=== PATIENT | female | born 1945 | race African-American/Black ===

== ENCOUNTER 2016-06-02 11:04 | Day surgery (SDC) | payer OTHER, MEDICARE ==
[~2016-06-02 11:04] MED LIST: CIPROFLOXACIN 0.3% OPHTH SOLUTION 2.5ML BOTTLE. OS ONE; EPINEPHRINE IO ONE; FENTANYL PF 100 MCG/2 ML VIAL. IV PRN; FEXO180T81 PO; HYDROMORPHONE 2 MG/ML VIAL. IV PRN; IV RINGERS,LACTATED 1000ML 1,000 ML IV SCH; LIDOCAINE 1% 1 ML SYRINGE. ID PRN; LIDOCAINE 2% JELLY 6ML IN APPLICATOR. MM PRN; MORPHINE SULFATE 2 MG/ML DISP.SYRIN. IV PRN; ONDANSETRON PF 4 MG/2 ML VIAL. IV PRN; PROCHLORPERAZINE 10 MG/2 ML VIAL. IV PRN; PROPARACAINE 0.5% OPHTH SOLUTION 15ML BOTTLE. OS ONE; [UNRECOGNIZED DRUG - OTHER] IO ONE
[2016-06-02] MEDS: PHENYLEPHRINE 10% OPHTH SOLUTION 5ML BOTTLE. OS SCH ×3 (11:38→11:50)
[2016-06-02] MEDS: CYCLOPENTOLATE 1% OPTH SOLUTION 2ML BOTTLE. OS SCH ×3 (11:38→11:50)
[2016-06-02] MEDS ORDERED: CHONDROIT-SOD-HYALURONATE KIT. ONE (11:41)
[2016-06-02] MEDS ORDERED: LIDOCAINE 1% PF 2 ML VIAL. ONE (11:41)
[2016-06-02] MEDS ORDERED: BALANCED SALT IRRIG OPHTH SOLN 15 ML BOTTLE. ONE (11:41)
[2016-06-02] MEDS ORDERED: NEO/POLYMYX/DEXAMETH OPHTH OINTMENT 3.5GM TUBE. ONE (11:41)
[2016-06-02] MEDS ORDERED: TRYPAN BLUE 0.06% INTRAOCULAR 0.5 ML SYRINGE. IO ONE (12:53)
[2016-06-02 13:43] VITALS: BP 161/68
[2016-06-02] MEDS ORDERED: DIFL5DRO2 OP (14:10)
[2016-06-02] MEDS ORDERED: TOBR5DRO6 OP (14:22)
--- NOTE | 2016-06-02 16:31 | OP ---
DATE OF SURGERY: 06/02/2016 PREOPERATIVE DIAGNOSIS: Significant cortical and posterior subcapsular cataract, left eye. POSTOPERATIVE DIAGNOSIS: Significant cortical and posterior subcapsular cataract, left eye. PROCEDURE: Phacoemulsification with posterior chamber lens implant with use of vision blue, left eye. ANESTHESIA: Topical with MAC. DESCRIPTION OF PROCEDURE: The patient's dilating drops and topical lidocaine anesthesia was applied in the outpatient area. The [place] balloon cup was placed over the eye and inflated to 30 mmHg and allowed to act for about 10-15 minutes. The patient was then brought to the operating room, positioned on the table, and prepositioned under the microscope. The eye was prepped and draped in the usual sterile manner for an intraocular procedure. The patient was and the lid speculum placed between the eyelids. The operating microscope was brought into position. The patient was first observed. There was good pupillary dilation. There was significant cortical cataract, which was going to interfere with capsulorrhexis formation. I decided to use vision blue. A paracentesis incision was used to make a small incision inferior temporally and 1% lidocaine injected into the anterior chamber. This was followed by an injection of air and Viscoat plug. Vision blue was then infiltrated over the anterior capsular surface and allowed to stain the capsule. The air was then displaced with Viscoat and the primary 2.4 mm incision made temporally. I was then able to perform a capsulorrhexis with a bent needle and forceps without difficulty. The lens nucleus was hydrodissected and the nucleus phacoemulsified without difficulty. The cortical material was then aspirated using the I/a handle. A +20.0 diopter posterior chamber lens was then placed into the bag with the use of Provisc. The Provisc was then aspirated with the I/a handle and the eye was then pressurized. The wound was checked for leaks and there were none. The eye looked very good in the case. The speculum and drape were removed and Maxitrol ointment instilled in the conjunctiva sac and the eye was shielded. She was taken to recovery room in satisfactory condition. I will check her Sunday in my office. I will be in touch with her by phone tomorrow. There were no complications. K AUBREE VALLEJO, MD DR: CATY/raya JOB#: [id number] / [id number]
== END 2016-06-02 14:46 | disposition home or self-care (01) ==
LOC: SURG 11:04
PROVIDERS: ATTEND Ophthalmology
DX: H26.8 Other specified cataract (principal); E78.00 Pure hypercholesterolemia, unspecified; K63.5 Polyp of colon; M19.90 Unspecified osteoarthritis, unspecified site; D64.9 Anemia, unspecified; Z87.891 Personal history of nicotine dependence; Z90.710 Acquired absence of both cervix and uterus
CPT/HCPCS: 66982; J0171; C1780

== ENCOUNTER → 2016-06-16 | Day surgery (SDC) | payer OTHER, MEDICARE ==
[~2016-06-16] VITALS: Ht 154.9 cm; Wt 66.7 kg
[~2016-06-16] MED LIST changes: +BALANCED SALT IRRIG OPHTH SOLN 15 ML BOTTLE. ONE; +CHONDROIT-SOD-HYALURONATE KIT. ONE; +CIPROFLOXACIN 0.3% OPHTH SOLUTION 2.5ML BOTTLE. OD ONE; -CIPROFLOXACIN 0.3% OPHTH SOLUTION 2.5ML BOTTLE. OS ONE; +DIFL5DRO2 OP; +EPINEPHRINE 0.2 MG in BALANCED SALT IRR SOLN (BAG) 500 ML IO ONE; -EPINEPHRINE IO ONE; +LIDOCAINE 1% PF 2 ML VIAL. ONE; +LIDOCAINE 2% 100 MG/5 ML DISP.SYRIN. ONE; +MIDAZOLAM HCL 2 MG/2 ML VIAL. ONE; +NEO/POLYMYX/DEXAMETH OPHTH OINTMENT 3.5GM TUBE. ONE; +PROPARACAINE 0.5% OPHTH SOLUTION 15ML BOTTLE. OD ONE; -PROPARACAINE 0.5% OPHTH SOLUTION 15ML BOTTLE. OS ONE; +PROPOFOL 0 ML IV ONE; +TOBR5DRO6 OP; -[UNRECOGNIZED DRUG - OTHER] IO ONE
[2016-06-16] MEDS: PHENYLEPHRINE 10% OPHTH SOLUTION 5ML BOTTLE. OD SCH ×3 (11:57→12:07)
[2016-06-16] MEDS: CYCLOPENTOLATE 1% OPTH SOLUTION 2ML BOTTLE. OD SCH ×3 (11:59→12:09)
[2016-06-16 13:55] VITALS: BP 144/55
--- NOTE | 2016-06-16 18:27 | OP ---
DATE OF SURGERY: 06/16/2016 PREOPERATIVE DIAGNOSIS: Senile cataract, left eye. POSTOPERATIVE DIAGNOSIS: Senile cataract, left eye PROCEDURE: Phacoemulsification with posterior chamber lens implant, left eye. ANESTHESIA: Topical with MAC. DESCRIPTION OF PROCEDURE: The patient's topical dilating drops and topical anesthesia were applied in the outpatient holding area and the Honan balloon cuff placed over the eye and inflated to 30 mmHg and allowed to act for about 15 minutes. The patient was then brought to the operating room, positioned on the table. The right eye was prepped and draped in usual sterile manner for an intraocular procedure. ____ K AUBREE VALLEJO MD DR: CATY/raya JOB#: [id number] / [id number]
--- NOTE | 2016-06-16 18:38 | OP ---
DATE OF SURGERY: 06/16/2016 PREOPERATIVE DIAGNOSIS: Senile cataract, right eye. POSTOPERATIVE DIAGNOSIS: Senile cataract, right eye. PROCEDURE: Phacoemulsification with posterior chamber lens implant, right eye. ANESTHESIA: Topical with MAC. DESCRIPTION OF PROCEDURE: The patient's topical dilating and anesthesia drops were instilled in the outpatient holding area. The Honan balloon cuff was placed over the eye and inflated to 30 mmHg and allowed to act for about 15 minutes. The patient was then brought to the operating room, positioned on the table and the right eye was prepped and draped in the usual sterile manner for an intraocular procedure. A lid speculum was placed between the eyelids and the operating microscope brought into position. The eye was first observed and there was good pupillary dilatation. A paracentesis incision was made superior temporally followed by an injection into the anterior chamber of 1% lidocaine. This was followed by an injection of Viscoat and then the primary 2.4 mm incision was made temporally. A Capsulorrhexis was performed without difficulty and then the lens nucleus hydrodissected. The nucleus was then phacoemulsified without difficulty. The cortical shell was cleaned up with the I/A instrument. Provisc was then used to form the anterior chamber and insufflate the bag. A +20.5 diopter posterior chamber lens was placed into the bag without difficulty. The viscoelastic was aspirated with the I/A handpiece. The wound was then pressurized with balanced salt solution and the wound checked for leaks and there were none. The speculum and drape were removed and Maxitrol ointment instilled in the conjunctival sac. The eye was shielded and the patient was taken to the recovery room in satisfactory condition. There were no complications. I will see the patient in 3 days in my office. I will touch bases with her by phone tomorrow. K AUBREE VALLEJO MD DR: CATY/raya JOB#: [id number] / [id number]
== END ==
LOC: SURG 10:54
PROVIDERS: ATTEND Ophthalmology
DX: H25.11 Age-related nuclear cataract, right eye (principal); E78.00 Pure hypercholesterolemia, unspecified; M19.90 Unspecified osteoarthritis, unspecified site; D64.9 Anemia, unspecified
CPT/HCPCS: 66984; C1780; J0171; J2250; J2704

== ENCOUNTER → 2016-08-03 | Outpatient (CLI) | payer OTHER, MEDICARE ==
[2016-06-16 13:55] VITALS: BP 144/55
[~2016-08-03] MED LIST changes: -BALANCED SALT IRRIG OPHTH SOLN 15 ML BOTTLE. ONE; -CHONDROIT-SOD-HYALURONATE KIT. ONE; -CIPROFLOXACIN 0.3% OPHTH SOLUTION 2.5ML BOTTLE. OD ONE; -EPINEPHRINE 0.2 MG in BALANCED SALT IRR SOLN (BAG) 500 ML IO ONE; -FENTANYL PF 100 MCG/2 ML VIAL. IV PRN; -HYDROMORPHONE 2 MG/ML VIAL. IV PRN; -IV RINGERS,LACTATED 1000ML 1,000 ML IV SCH; -LIDOCAINE 1% 1 ML SYRINGE. ID PRN; -LIDOCAINE 1% PF 2 ML VIAL. ONE; -LIDOCAINE 2% 100 MG/5 ML DISP.SYRIN. ONE; -LIDOCAINE 2% JELLY 6ML IN APPLICATOR. MM PRN; -MIDAZOLAM HCL 2 MG/2 ML VIAL. ONE; -MORPHINE SULFATE 2 MG/ML DISP.SYRIN. IV PRN; -NEO/POLYMYX/DEXAMETH OPHTH OINTMENT 3.5GM TUBE. ONE; -ONDANSETRON PF 4 MG/2 ML VIAL. IV PRN; -PROCHLORPERAZINE 10 MG/2 ML VIAL. IV PRN; -PROPARACAINE 0.5% OPHTH SOLUTION 15ML BOTTLE. OD ONE; -PROPOFOL 0 ML IV ONE
--- NOTE | 2016-08-03 08:39 | RAD ---
DATE: 08/03/2016 EXAM: DIGITAL SCREEN BILAT W/CAD HISTORY: Routine screening COMPARISON: 05/10/2015 This study was interpreted with the benefit of Computerized Aided Detection (CAD). FINDINGS: The breasts are heterogeneously dense. No new or enlarging breast densities are seen. Minimal benign type calcifications present. No suspicious microcalcifications have developed. IMPRESSION: Stable mammograms without evidence of malignancy. BI-RADS CATEGORY: 2 BENIGN FINDING(S) RECOMMENDED FOLLOW-UP: 12M 12 MONTH FOLLOW-UP PQRS compliance statement: Patient information was entered into a reminder system with a target due date for the next mammogram. Mammography is a sensitive method for finding small breast cancers, but it does not detect them all and is not a substitute for careful clinical examination. A negative mammogram does not negate a clinically suspicious finding and should not result in delay in biopsying a clinically suspicious abnormality. "Our facility is accredited by the [employer] Mammography Program."
== END | disposition home or self-care (01) ==
LOC: MAMMO 07:45
PROVIDERS: ATTEND Family Medicine
DX: Z12.31 Encounter for screening mammogram for malignant neoplasm of breast (principal)
CPT/HCPCS: G0202; 77067

== ENCOUNTER → 2017-04-12 | Outpatient (CLI) | payer OTHER, MEDICARE ==
[2016-06-16 13:55] VITALS: BP 144/55
--- NOTE | 2017-04-12 08:26 | KCIC ---
Bone Densitometry History: Postmenopausal female. Hysterectomy. Findings: Bone Densitometry was performed with dual photon absorption of the lumbar spine and proximal femurs. Lumbar Spine: Bone density is 1.031 g/cm2 for L1-L4. T-score is -0.1. Z-score is 1.3. Left total femur: Bone density is 0.966 g/cm2. T-score is 0.2. Z-score is 0.7. IMPRESSION: Bone mineral densities of the lumbar spine and left total femur are normal. World Health Organization definition of osteoporosis and osteopenia for women: normal equals T score at or above -1.0 standard deviations; osteopenia equals T score between -1.0 and -2.5 standard deviations; osteoporosis equals T score at or below -2.5 standard deviations. Electronically signed by: Rosalio Patel MD (04/12/2017 8:22 AM) [id number]
== END | disposition home or self-care (01) ==
LOC: KCIC DEXA 07:45
PROVIDERS: ATTEND Nurse Practitioner
DX: M81.0 Age-related osteoporosis without current pathological fracture (principal); Z78.0 Asymptomatic menopausal state
CPT/HCPCS: 77080

== ENCOUNTER → 2017-10-06 | Outpatient (CLI) | payer OTHER, MEDICARE | END | disposition home or self-care (01) | LOC: MAMMO 09:06 | DX: Z12.31 Encounter for screening mammogram for malignant neoplasm of breast (principal); E78.00 Pure hypercholesterolemia, unspecified | CPT/HCPCS: 77063; 77067 ==

== ENCOUNTER → 2017-10-11 | Outpatient (CLI) | payer OTHER, MEDICARE ==
[2017-10-11 07:53] LABS: ADD MAN DIFF? NO
[2017-10-11 07:58] LABS: BASO # 0.1 x10^3/uL (0.0-0.2); BASO % 1 % (0-3); EOS # 0.2 x10^3/uL (0.0-0.7); EOS % 3 % (0-3); HEMATOCRIT 42.9 % (36.0-47.0); HEMOGLOBIN 14.1 g/dL (12.0-15.5); LYMPH # 1.7 x10^3/uL (1.0-4.8); LYMPH % 22 % (24-48); MEAN CORPUSCULAR HEMOGLOBIN 29 pg (25-35); MEAN CORPUSCULAR HGB CONC 33 g/dL (31-37); MEAN CORPUSCULAR VOLUME 88 fL (79-100); MONO # 0.4 x10^3/uL (0.0-1.1); MONO % 5 % (0-9); NEUT # 5.4 x10^3uL (1.8-7.7); NEUT % 69 % (31-73); PLATELET COUNT 243 x10^3/uL (140-400); RED BLOOD COUNT 4.86 x10^6/uL (3.50-5.40); RED CELL DISTRIBUTION WIDTH 13.7 % (11.5-14.5); WHITE BLOOD COUNT 7.8 x10^3/uL (4.0-11.0)
[2017-10-11 08:17] LABS: ALBUMIN 3.8 g/dL (3.4-5.0); ALBUMIN/GLOBULIN RATIO 0.9 (1.0-1.7); ALK PHOS 90 U/L (46-116); ALT (SGPT) 25 U/L (14-59); ANION GAP 8 (6-14); AST (SGOT) 12 U/L (15-37); BLOOD UREA NITROGEN 13 mg/dL (7-20); BUN/CREATININE RATIO 14 (6-20); CARBON DIOXIDE 30 mmol/L (21-32); CHLORIDE 104 mmol/L (98-107); CHOLESTEROL 210 mg/dL (0-200); CREATININE 0.9 mg/dL (0.6-1.0); GFR 74.7; GLUCOSE 105 mg/dL (70-99); HDLC 69 mg/dL (40-60); LDLC 126 mg/dL (0-100); NON-HDL CHOLESTEROL 141 mg/dL (0-129); POTASSIUM 3.8 mmol/L (3.5-5.1); SODIUM 142 mmol/L (136-145); TOTAL BILIRUBIN 0.5 mg/dL (0.2-1.0); TRIGLYCERIDES 73 mg/dL (0-150); VLDLC 15 mg/dL (0-40)
[2017-10-11 08:25] LABS: THYROID STIM HORMONE (TSH) 1.467 uIU/mL (0.358-3.74)
[2017-10-12 04:17] LABS: HEMOGLOBIN A1C 5.1 % (4.8-5.6)
== END | disposition home or self-care (01) ==
LOC: LAB 07:18
DX: E78.2 Mixed hyperlipidemia (principal); I10 Essential (primary) hypertension; E55.9 Vitamin D deficiency, unspecified
CPT/HCPCS: 36415; 80053; 80061; 82306; 83036; 84443; 85025

== ENCOUNTER 2018-02-02 07:22 | Emergency (ER) | payer OTHER, MEDICARE ==
[~2018-02-02] VITALS: Ht 157.5 cm; Wt 68.5 kg
[2018-02-02 07:30] VITALS: BP 175/82
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
== END 2018-02-02 08:58 | disposition home or self-care (01) ==
LOC: ER 07:22
DX: S20.212A Contusion of left front wall of thorax, initial encounter (principal); I10 Essential (primary) hypertension; Z90.710 Acquired absence of both cervix and uterus; Z88.1 Allergy status to other antibiotic agents; V49.9XXA Car occupant (driver) (passenger) injured in unspecified traffic accident, initial encounter; Y93.89 Activity, other specified; Y92.410 Unspecified street and highway as the place of occurrence of the external cause; Y99.8 Other external cause status
CPT/HCPCS: 71046; 99284

== ENCOUNTER → 2018-08-21 | Outpatient (CLI) | payer OTHER, MEDICARE ==
[2018-08-21 09:51] LABS: BASO # 0.1 x10^3/uL (0.0-0.2); BASO % 1 % (0-3); EOS # 0.2 x10^3/uL (0.0-0.7); EOS % 3 % (0-3); HEMATOCRIT 43.1 % (36.0-47.0); LYMPH # 1.7 x10^3/uL (1.0-4.8); LYMPH % 22 % (24-48); MEAN CORPUSCULAR HEMOGLOBIN 29 pg (25-35); MEAN CORPUSCULAR HGB CONC 32 g/dL (31-37); MEAN CORPUSCULAR VOLUME 88 fL (79-100); MONO # 0.4 x10^3/uL (0.0-1.1); MONO % 5 % (0-9); NEUT # 5.6 x10^3uL (1.8-7.7); NEUT % 70 % (31-73); PLATELET COUNT 244 x10^3/uL (140-400); RED BLOOD COUNT 4.89 x10^6/uL (3.50-5.40); RED CELL DISTRIBUTION WIDTH 13.8 % (11.5-14.5)
[2018-08-21 10:09] LABS: ALBUMIN 3.4 g/dL (3.4-5.0); ALBUMIN/GLOBULIN RATIO 0.8 (1.0-1.7); CALCIUM 8.9 mg/dL (8.5-10.1); CREATININE 0.8 mg/dL (0.6-1.0); GFR 85.3; POTASSIUM 3.6 mmol/L (3.5-5.1); TOTAL BILIRUBIN 0.4 mg/dL (0.2-1.0); TOTAL PROTEIN 7.7 g/dL (6.4-8.2)
[2018-08-21 10:13] LABS: CHOLESTEROL/HDL RATIO 3.2
== END | disposition home or self-care (01) ==
LOC: LAB 08:25
PROVIDERS: ATTEND Nurse Practitioner
DX: E78.2 Mixed hyperlipidemia (principal); E55.9 Vitamin D deficiency, unspecified
CPT/HCPCS: 36415; 80053; 80061; 82306; 85025

== ENCOUNTER → 2018-10-16 | Outpatient (CLI) | payer OTHER, MEDICARE ==
--- NOTE | 2018-10-16 10:19 | RAD ---
DATE: 10/16/2018. EXAM: MAMMO MICHAEL SCREENING BILATERAL. HISTORY: Routine mammographic screening. COMPARISON: 10/06/2017. This study was interpreted with the benefit of Computerized Aided Detection (CAD). FINDINGS: Breast Density: HETERO The breast parenchyma is heterogenously dense, which could reduce sensitivity of mammography. Breast parenchyma level C.. There appears to be left nipple retraction on the MLO projection, but not on the CC view. This is new since the prior study. No subareolar abnormality is identified on the left. There are no suspicious masses, microcalcifications or architectural distortion. Small nodules bilaterally are stable. Previously marked skin lesions are again noted on the left. The parenchymal pattern is stable. BI-RADS CATEGORY: 0 INCOMPLETE: NEEDS ADDITIONAL IMAGING EVALUATION AND/OR PRIOR MAMMOGRAMS FOR COMPARISON.. RECOMMENDED FOLLOW-UP: ADD ADDITIONAL IMAGING. 1. Clinical assessment and ultrasound of the left subareolar breast to assess for cause of developing left nipple retraction. PQRS compliance statement: Patient information was entered into a reminder system with a target due date (now) for the next mammogram. Mammography is a sensitive method for finding small breast cancers, but it does not detect them all and is not a substitute for careful clinical examination. A negative mammogram does not negate a clinically suspicious finding and should not result in delay in biopsying a clinically suspicious abnormality. "Our facility is accredited by the [employer] Mammography Program."
== END | disposition home or self-care (01) ==
LOC: MAMMO 07:38
PROVIDERS: ATTEND Family Medicine
DX: Z12.31 Encounter for screening mammogram for malignant neoplasm of breast (principal); N63.20 Unspecified lump in the left breast, unspecified quadrant; N63.10 Unspecified lump in the right breast, unspecified quadrant
CPT/HCPCS: 77063; 77067

== ENCOUNTER → 2018-10-23 | Outpatient (CLI) | payer OTHER, MEDICARE ==
--- NOTE | 2018-10-23 08:37 | RAD ---
Left breast ultrasound, 10/23/2018: HISTORY: Nipple retraction The patient reports that her left nipple has been slightly retracted on a chronic basis and has not changed. A targeted ultrasound exam of the left retroareolar region demonstrates heterogeneous fibroglandular shadows. No solid mass or unusual fluid collection is seen. IMPRESSION: The targeted left breast ultrasound reveals no abnormality. Routine follow-up bilateral mammography in one year is suggested. BI-RADS 2-benign findings
== END | disposition home or self-care (01) ==
LOC: US 07:57
PROVIDERS: ATTEND Family Medicine
DX: N64.53 Retraction of nipple (principal)
CPT/HCPCS: 76641

== ENCOUNTER → 2019-09-05 | Outpatient (CLI) | payer OTHER ==
[2019-09-05 07:38] LABS: ALBUMIN 3.4 g/dL (3.4-5.0); ALBUMIN/GLOBULIN RATIO 0.9 (1.0-1.7); CHOLESTEROL/HDL RATIO 3.6; CREATININE 0.9 mg/dL (0.6-1.0); GFR 74.3; POTASSIUM 4.3 mmol/L (3.5-5.1); TOTAL BILIRUBIN 0.3 mg/dL (0.2-1.0); TOTAL PROTEIN 7.2 g/dL (6.4-8.2)
== END | disposition home or self-care (01) ==
LOC: LAB 07:01
PROVIDERS: ATTEND Nurse Practitioner
DX: E55.9 Vitamin D deficiency, unspecified (principal); E78.2 Mixed hyperlipidemia
CPT/HCPCS: 36415; 80053; 80061; 82306; 84443

== ENCOUNTER → 2020-03-27 | Outpatient (CLI) | payer OTHER ==
--- NOTE | 2020-03-29 11:11 | RAD ---
DATE: 03/27/2020 9:30 AM EXAM: MAMMO MICHAEL SCREENING BILATERAL HISTORY: Screening COMPARISON: 10/16/2018, 10/06/2017, 08/03/2016 Bilateral CC and MLO views of the breasts were performed. Bilateral breast tomosynthesis was performed in CC and MLO projections. This study was interpreted with the benefit of Computerized Aided Detection (CAD). FINDINGS: Breast Density: HETERO The breast parenchyma Is heterogeneously dense, which could reduce sensitivity of mammography. Breast parenchyma level C Left mammogram is negative. Right mammogram shows an asymmetry in the posterior right breast along the posterior nipple line on the 2-D MLO view that may have a correlate on image 21 of the MLO tomographic series. This needs additional imaging with a right X CCL view, spot compression right MLO view and full-field ML view. IMPRESSION: Incomplete. Asymmetry right breast needs additional imaging. BI-RADS CATEGORY: 0 INCOMPLETE: NEEDS ADDITIONAL IMAGING EVALUATION AND/OR PRIOR MAMMOGRAMS FOR COMPARISON. RECOMMENDED FOLLOW-UP: ADD ADDITIONAL IMAGING The patient will be contacted to return for additional imaging and a supplemental report will follow. PQRS compliance statement: Patient information was entered into a reminder system with a target due date for the next mammogram. Mammography is a sensitive method for finding small breast cancers, but it does not detect them all and is not a substitute for careful clinical examination. A negative mammogram does not negate a clinically suspicious finding and should not result in delay in biopsying a clinically suspicious abnormality. "Our facility is accredited by the [employer] Mammography Program."
== END ==
LOC: MAMMO 09:22
PROVIDERS: ATTEND Family Medicine
DX: Z12.31 Encounter for screening mammogram for malignant neoplasm of breast (principal)
CPT/HCPCS: 77063; 77067

== ENCOUNTER → 2020-04-14 | Outpatient (CLI) | payer OTHER ==
--- NOTE | 2020-04-14 14:37 | RAD ---
DATE: 04/14/2020 10:29 AM EXAM: DIGITAL DIAGNOSTIC RT, BREAST RIGHT HISTORY: Screening recall for asymmetry in the posterior right breast COMPARISON: 03/27/2020 TECHNIQUE: Right full-field ML view, X CCL view, the spot MLO view were obtained with 2-D technique and reviewed with computer-aided detection. Targeted ultrasound of the upper-outer quadrant right breast posteriorly was performed This study was interpreted with the benefit of Computerized Aided Detection (CAD). FINDINGS: Breast Density: HETERO The breast parenchyma Is heterogeneously dense, which could reduce sensitivity of mammography. Breast parenchyma level C The questioned asymmetry in the posterior lateral right breast changed configuration in a pattern compatible with overlap of benign fibroglandular tissue on spot compression and additional mammographic views. Targeted ultrasound of the lateral posterior right breast revealed no suspicious sonographic findings and assisted sales representative images were acquired at the 10:30 o'clock position 4 cm from the nipple. IMPRESSION: Probably benign island of fibroglandular tissue in the lateral posterior right breast. BI-RADS CATEGORY: 3 PROBABLY BENIGN FINDING(S)-SHORT INTERVAL FOLLOW-UP SUGGESTED RECOMMENDED FOLLOW-UP: 6M 6 MONTH FOLLOW-UP right diagnostic mammogram and possible breast ultrasound. PQRS compliance statement: Patient information was entered into a reminder system with a target due date for the next mammogram. Mammography is a sensitive method for finding small breast cancers, but it does not detect them all and is not a substitute for careful clinical examination. A negative mammogram does not negate a clinically suspicious finding and should not result in delay in biopsying a clinically suspicious abnormality. "Our facility is accredited by the [employer] Mammography Program."
== END ==
LOC: MAMMO 10:26
PROVIDERS: ATTEND Family Medicine
DX: R92.2 Inconclusive mammogram (principal)
CPT/HCPCS: 76641; 77065

== ENCOUNTER → 2020-11-10 | Outpatient (CLI) | payer OTHER ==
--- NOTE | 2020-11-10 13:59 | RAD ---
EXAM: Right breast diagnostic mammogram with tomosynthesis; right breast sonogram. HISTORY: 75-year-old female presents for follow-up evaluation of suspected benign findings within the right breast demonstrated on a prior study performed 04/14/2020. TECHNIQUE: Full-field digital craniocaudal, true lateral and mediolateral oblique 2D and 3D tomosynth esis images of the right breast are obtained. Sonographic imaging of the right breast targeted to sit es of mammographic asymmetry and nodularity was also performed. COMPARISON: 04/14/2020, 03/27/2020, 10/23/2018, 10/16/2018, 10/06/2017 BREAST PARENCHYMAL DENSITY: Level C - Heterogeneously dense. FINDINGS: There are circumscribed nodular densities and nodular asymmetries throughout the right uzma st, primarily at the 3:00 and 9:00 positions at anterior and posterior depth. There is no new suspici ous calcification or architectural distortion. These areas of asymmetry and nodularity are not signif icantly changed when allowing for differences in patient positioning. Sonographic imaging of the right breast demonstrates a 4.4 mm cyst with internal debris at the 9:00 p osition 7 cm from the nipple and a 5.2 mm cyst with internal debris at the 3:00 position 3 cm from th e nipple, corresponding with areas of mammographic nodularity. There is no suspicious sonographic fin ding. IMPRESSION: 1. Stable benign areas of nodularity and asymmetry within the right breast, some of which correspond with complicated cyst demonstrated sonographically. There is no new suspicious mammographic or sonogr aphic finding. 2. BI-RADS Category 2: Benign finding(s). RECOMMENDATION: The patient will be due for bilateral mammography in 6 months according to a previous ly established mammography interval. If your mammogram demonstrates that you have dense breast tissue, which could hide abnormalities, and if you have other risk factors for breast cancer that have been identified, you might benefit from s upplemental screening tests that may be suggested by your ordering physician. Dense breast tissue, i n and of itself, is a relatively common condition. This information is not provided to cause undue c oncern, but rather to raise your awareness and to promote discussion with your physician regarding th e presence of other risk factors, in addition to dense breast tissue. A report of your mammography re sults will be sent to you and your physician. You should contact your physician if you have any ques tions or concerns regarding this report. Mammography is a sensitive method for finding small breast cancers, but it does not detect them all a nd is not a substitute for careful clinical examination. A negative mammogram does not negate a clin ically suspicious finding and should not result in delay in biopsying a clinically suspicious abnorma lity. PQRS compliance statement - Patient information was entered into a reminder system with a target due date for the next mammogram. "Our facility is accredited by the [employer] Mammography Program." Electronically signed by: Purvi Rodrigues MD (11/10/2020 1:57 PM) [id number]
== END ==
LOC: MAMMO 12:43
PROVIDERS: ATTEND Family Medicine
DX: N60.01 Solitary cyst of right breast (principal); N63.41 Unspecified lump in right breast, subareolar; R92.8 Other abnormal and inconclusive findings on diagnostic imaging of breast
CPT/HCPCS: 76641; 77065; G0279; 77061

== ENCOUNTER → 2020-12-24 | Outpatient (CLI) | payer OTHER ==
[2020-12-24 07:55] LABS: BASO # 0.1 x10^3/uL (0.0-0.2); BASO % 1 % (0-3); EOS # 0.2 x10^3/uL (0.0-0.7); EOS % 3 % (0-3); HEMATOCRIT 40.5 % (36.0-47.0); HEMOGLOBIN 13.3 g/dL (12.0-15.5); LYMPH # 1.4 x10^3/uL (1.0-4.8); LYMPH % 19 % (24-48); MEAN CORPUSCULAR HEMOGLOBIN 29 pg (25-35); MEAN CORPUSCULAR HGB CONC 33 g/dL (31-37); MEAN CORPUSCULAR VOLUME 88 fL (79-100); MONO # 0.4 x10^3/uL (0.0-1.1); MONO % 5 % (0-9); NEUT # 5.4 x10^3/uL (1.8-7.7); NEUT % 72 % (31-73); PLATELET COUNT 212 x10^3/uL (140-400); RED BLOOD COUNT 4.58 x10^6/uL (3.50-5.40); RED CELL DISTRIBUTION WIDTH 13.9 % (11.5-14.5); WHITE BLOOD COUNT 7.5 x10^3/uL (4.0-11.0)
[2020-12-24 08:33] LABS: ALBUMIN 2.8 g/dL (3.4-5.0); ALBUMIN/GLOBULIN RATIO 0.7 (1.0-1.7); CALCIUM 8.6 mg/dL (8.5-10.1); CREATININE 0.8 mg/dL (0.6-1.0); GFR 84.8; POTASSIUM 4.3 mmol/L (3.5-5.1); TOTAL BILIRUBIN 0.3 mg/dL (0.2-1.0); TOTAL PROTEIN 6.7 g/dL (6.4-8.2)
[2020-12-24 08:38] LABS: CHOLESTEROL/HDL RATIO 3.1
== END ==
LOC: LAB 06:42
PROVIDERS: ATTEND Nurse Practitioner
DX: I10 Essential (primary) hypertension (principal); E55.9 Vitamin D deficiency, unspecified; E78.2 Mixed hyperlipidemia
CPT/HCPCS: 36415; 80053; 80061; 82306; 84443; 85025